=== PATIENT | female | born 1950 | race African-American/Black ===

== ENCOUNTER 2018-07-27 08:44 | Inpatient (IN) ==
[2018-07-27] MEDS ORDERED: SODIUM CHLORIDE 0.9% 1,000 ML IV STA (09:50)
[2018-07-27] MEDS ORDERED: THIAMINE 200 MG/2 ML VIAL IV STA (09:50)
[2018-07-27 10:19] LABS: Basophils # 0.1 10*3/uL (0.0-0.2); Basophils % 0.7 % (0.0-0.8); Eosinophils # 0.1 10*3/uL (0.0-0.87); Eosinophils % 1.8 % (0.00-10.9); Hematocrit 46.4 VOL% (35.7-47.0); Immature Granulocytes % 0.3 %; Immature Granulocytes Absolute 0.02 #; Lymphocytes # 3.8 10*3/uL (1.4-4.0); Lymphocytes % 53.5 % (21.3-54.2); Mean Corpuscular HGB Conc 34.5 GM/DL (32-36); Mean Corpuscular Hemoglobin 33 PG (27-34); Mean Corpuscular Volume 95.7 FL (87-102); Monocytes # 0.7 10*3/uL (0.11-0.8); Monocytes % 10.1 % (1.7-12.7); Neutrophils # 2.4 10*3/uL (1.4-7.4); Neutrophils % 33.6 % (38.7-73.9); Red Blood Count 4.85 MC/CUMM (3.8-5.5); Red Cell Distribution Width 19.1 % (9.3-17.3)
[2018-07-27 10:22] LABS: Platelet Count 92 T/CUMM (130-400)
[2018-07-27 10:28] LABS: INR 1.5; PT Patient Result 16.1 SECS
[2018-07-27 10:38] LABS: Albumin 1.4 G/DL (3.4-5.0); Bilirubin,Total 4.9 MG/DL (0.2-1.0); Calcium 8.5 MG/DL (8.5-10.1); Osmolality,Calculated 276.8 MOS/KG (273-304); Thyroid Stimulating Hormone 2.61 uIU/ml (0.358-3.74); Total Protein 8.7 G/DL (6.4-8.3)
[2018-07-27 10:40] LABS: Lactic Acid 2.2 MMOL/L (0.4-2.0)
[2018-07-27 11:11] LABS: Eosinophils 1 % (0-10); Hypochromasia 1+; Lymphocytes 51 % (20-55); Macrocytosis 1+; Nucleated Red Blood Cells 2 (0-5); Polychromasia Slight; Segmented Neutrophils 43 % (50-85); Target Cells Slight; Total Cells Counted 100
[2018-07-27 11:12] LABS: Platelet Estimate Decreased
[2018-07-27 11:56] LABS: Ammonia 107 UMOL/L (11-32)
[2018-07-27] MEDS ORDERED: ONDANSETRON 4 MG/2 ML VIAL IV PRN (12:44)
[2018-07-27] MEDS ORDERED: PROMETHAZINE 25 MG/1 ML VIAL IM PRN (12:44)
[2018-07-27] MEDS ORDERED: POTASSIUM CHLORIDE 20 MEQ TABLET PO PRN (12:48)
[2018-07-27] MEDS ORDERED: POTASSIUM CHLORIDE RIDER 10 MEQ in PREMIX 1 EACH IV PRN (12:48)
[2018-07-27] MEDS ORDERED: POTASSIUM CHLORIDE 20 MEQ TABLET PO STA (12:50)
[2018-07-27] MEDS ORDERED: DEXTROSE 50% 25 GM/50 ML SYRINGE IV PRN (14:59)
[2018-07-27] MEDS ORDERED: GLUCAGON 1 MG VIAL IM PRN (14:59)
[2018-07-27] MEDS: LACTULOSE 20 GM/30 ML UDCUP PO SCH ×3 (15:36→21:13)
[2018-07-27] MEDS: SODIUM CHLOR 0.9% KCL 20 MEQ 20 MEQ/1,000 ML BAG IV SCH (15:59)
[2018-07-27] MEDS ORDERED: POTASSIUM CHLORIDE 20 MEQ TABLET PO ONE (18:00)
[2018-07-27] MEDS: INSULIN LISPRO 100 UNIT/ML SUBCUT SCH ×2 (18:02→21:13)
[2018-07-27] MEDS: RIFAXIMIN 550 MG TABLET PO SCH (21:13)
[2018-07-27 22:48] LABS: Lactic Acid 2.2 MMOL/L (0.4-2.0)
[2018-07-28] MEDS: SODIUM CHLOR 0.9% KCL 20 MEQ 20 MEQ/1,000 ML BAG IV SCH ×2 (01:34→09:19)
[2018-07-28 04:58] LABS: Basophils % 0.5 % (0.0-0.8); Eosinophils # 0.2 10*3/uL (0.0-0.87); Eosinophils % 1.9 % (0.00-10.9); Hematocrit 38.2 VOL% (35.7-47.0); Hemoglobin 12.7 GM/DL (12.0-16.0); Immature Granulocytes % 0.2 %; Immature Granulocytes Absolute 0.02 #; Lymphocytes % 48.7 % (21.3-54.2); Mean Corpuscular HGB Conc 33.2 GM/DL (32-36); Mean Corpuscular Hemoglobin 32 PG (27-34); Mean Corpuscular Volume 97.2 FL (87-102); Monocytes # 0.9 10*3/uL (0.11-0.8); Monocytes % 10.9 % (1.7-12.7); Neutrophils # 3.1 10*3/uL (1.4-7.4); Neutrophils % 37.8 % (38.7-73.9); Platelet Count 81 T/CUMM (130-400); Red Blood Count 3.93 MC/CUMM (3.8-5.5); Red Cell Distribution Width 19.1 % (9.3-17.3); White Blood Count 8.2 T/CUMM (4-12)
[2018-07-28 05:18] LABS: Albumin 1.1 G/DL (3.4-5.0); Bilirubin,Total 5.4 MG/DL (0.2-1.0); Calcium 7.8 MG/DL (8.5-10.1); Osmolality,Calculated 281.4 MOS/KG (273-304); Potassium 4.2 MMOL/L (3.5-5.1); Risk Ratio 6.38; VLDL CHOLESTEROL 13.2 MG/DL
[2018-07-28 05:45] LABS: Eosinophils 3 % (0-10); Hypochromasia Slight; Lymphocytes 20 % (20-55); Platelet Estimate Decreased; Polychromasia Few; Segmented Neutrophils 70 % (50-85); Total Cells Counted 100
[2018-07-28] MEDS: INSULIN LISPRO 100 UNIT/ML SUBCUT SCH ×4 (08:09→22:05)
[2018-07-28] MEDS: RIFAXIMIN 550 MG TABLET PO SCH ×2 (09:09→21:19)
[2018-07-28] MEDS: POTASSIUM CHLORIDE 10 MEQ TABLET PO SCH (09:11)
[2018-07-28] MEDS: PANTOPRAZOLE 40 MG TABLET PO SCH (09:12)
[2018-07-28] MEDS: PROPRANOLOL 20 MG TABLET PO SCH (09:13)
[2018-07-28] MEDS: FUROSEMIDE 40 MG TABLET PO SCH (09:13)
[2018-07-28] MEDS: CHLORTHALIDONE 25 MG TABLET PO SCH (09:14)
[2018-07-28] MEDS: LACTULOSE 20 GM/30 ML UDCUP PO SCH ×4 (09:15→21:18)
[2018-07-28] MEDS ORDERED: INSULIN GLARGINE 100 UNIT/ML SUBCUT SCH ×2 (21:00)
[2018-07-29] MEDS: SODIUM CHLOR 0.9% KCL 20 MEQ 20 MEQ/1,000 ML BAG IV SCH ×2 (02:55→06:47)
[2018-07-29 05:17] LABS: Basophils # 0.1 10*3/uL (0.0-0.2); Basophils % 0.6 % (0.0-0.8); Eosinophils # 0.2 10*3/uL (0.0-0.87); Eosinophils % 1.9 % (0.00-10.9); Hematocrit 37.3 VOL% (35.7-47.0); Hemoglobin 12.7 GM/DL (12.0-16.0); Immature Granulocytes % 0.3 %; Immature Granulocytes Absolute 0.03 #; Lymphocytes # 4.6 10*3/uL (1.4-4.0); Lymphocytes % 51.6 % (21.3-54.2); Mean Corpuscular Hemoglobin 33 PG (27-34); Mean Corpuscular Volume 97.4 FL (87-102); Monocytes # 0.9 10*3/uL (0.11-0.8); Monocytes % 9.9 % (1.7-12.7); Neutrophils # 3.1 10*3/uL (1.4-7.4); Neutrophils % 35.7 % (38.7-73.9); Platelet Count 75 T/CUMM (130-400); Red Blood Count 3.83 MC/CUMM (3.8-5.5); Red Cell Distribution Width 19.4 % (9.3-17.3); White Blood Count 8.8 T/CUMM (4-12)
[2018-07-29 05:42] LABS: Bilirubin,Total 4.8 MG/DL (0.2-1.0); Calcium 7.7 MG/DL (8.5-10.1); Osmolality,Calculated 282.1 MOS/KG (273-304); Potassium 3.5 MMOL/L (3.5-5.1); Total Protein 6.6 G/DL (6.4-8.3)
[2018-07-29] MEDS: LEVOTHYROXINE 50 MCG TABLET PO SCH (07:59)
[2018-07-29 08:13] LABS: Band Neutrophils 5 % (0-10); Eosinophils 3 % (0-10); Lymphocytes 37 % (20-55); Platelet Estimate Decreased; Segmented Neutrophils 46 % (50-85); Smudge Cells 1+; Total Cells Counted 100
[2018-07-29 08:14] LABS: Anisocytosis 2+; Hypochromasia Slight; Macrocytosis 1+; Target Cells Few
[2018-07-29] MEDS: PROPRANOLOL 20 MG TABLET PO SCH (11:45)
[2018-07-29] MEDS: POTASSIUM CHLORIDE 10 MEQ TABLET PO SCH (11:45)
[2018-07-29] MEDS: PANTOPRAZOLE 40 MG TABLET PO SCH (11:45)
[2018-07-29] MEDS: FUROSEMIDE 40 MG TABLET PO SCH (11:45)
[2018-07-29] MEDS: CHLORTHALIDONE 25 MG TABLET PO SCH (11:45)
[2018-07-29] MEDS: RIFAXIMIN 550 MG TABLET PO SCH ×2 (11:45→20:20)
[2018-07-29] MEDS: LACTULOSE 20 GM/30 ML UDCUP PO SCH ×5 (11:47→20:29)
[2018-07-29] MEDS: INSULIN LISPRO 100 UNIT/ML SUBCUT SCH ×4 (11:55→22:19)
[2018-07-29] MEDS: INSULIN GLARGINE 100 UNIT/ML SUBCUT SCH (20:32)
[2018-07-30] MEDS: LACTULOSE 20 GM/30 ML UDCUP PO SCH ×7 (00:27→20:32)
[2018-07-30 05:13] LABS: Albumin 1.2 G/DL (3.4-5.0); Bilirubin,Total 4.7 MG/DL (0.2-1.0); Calcium 8.2 MG/DL (8.5-10.1); Osmolality,Calculated 281.3 MOS/KG (273-304); Total Protein 7.7 G/DL (6.4-8.3)
[2018-07-30 05:18] LABS: Basophils % 0.4 % (0.0-0.8); Eosinophils # 0.2 10*3/uL (0.0-0.87); Eosinophils % 2.2 % (0.00-10.9); Hematocrit 39.5 VOL% (35.7-47.0); Hemoglobin 13.5 GM/DL (12.0-16.0); Immature Granulocytes % 0.7 %; Lymphocytes # 4.4 10*3/uL (1.4-4.0); Lymphocytes % 47.6 % (21.3-54.2); Mean Corpuscular HGB Conc 34.2 GM/DL (32-36); Mean Corpuscular Hemoglobin 33 PG (27-34); Mean Corpuscular Volume 97.3 FL (87-102); Monocytes # 1.1 10*3/uL (0.11-0.8); Monocytes % 11.5 % (1.7-12.7); Neutrophils # 3.5 10*3/uL (1.4-7.4); Neutrophils % 37.6 % (38.7-73.9); Red Blood Count 4.06 MC/CUMM (3.8-5.5); Red Cell Distribution Width 19.1 % (9.3-17.3); White Blood Count 9.2 T/CUMM (4-12)
[2018-07-30 05:19] LABS: Immature Granulocytes Absolute 0.06 #
[2018-07-30 05:20] LABS: Platelet Count 81 T/CUMM (130-400)
[2018-07-30 05:35] LABS: Osmolality,Calculated 280.4 MOS/KG (273-304); Potassium 3.1 MMOL/L (3.5-5.1)
[2018-07-30 05:49] LABS: Band Neutrophils 1 % (0-10); Eosinophils 5 % (0-10); Hypochromasia 1+; Lymphocytes 30 % (20-55); Platelet Estimate Decreased; Segmented Neutrophils 55 % (50-85); Total Cells Counted 100
[2018-07-30 05:50] LABS: Macrocytosis Slight; Target Cells Few
[2018-07-30] MEDS: LEVOTHYROXINE 50 MCG TABLET PO SCH ×2 (05:53→06:06)
[2018-07-30] MEDS ORDERED: POTASSIUM CHLORIDE 20 MEQ TABLET PO ONE (07:29)
[2018-07-30] MEDS: INSULIN LISPRO 100 UNIT/ML SUBCUT SCH ×4 (10:48→20:34)
[2018-07-30] MEDS: FUROSEMIDE 40 MG TABLET PO SCH (10:53)
[2018-07-30] MEDS: PANTOPRAZOLE 40 MG TABLET PO SCH (10:54)
[2018-07-30] MEDS: PROPRANOLOL 20 MG TABLET PO SCH (10:54)
[2018-07-30] MEDS: CHLORTHALIDONE 25 MG TABLET PO SCH (10:54)
[2018-07-30] MEDS: RIFAXIMIN 550 MG TABLET PO SCH ×2 (10:54→20:33)
[2018-07-30] MEDS: POTASSIUM CHLORIDE 20 MEQ TABLET PO SCH ×2 (11:37→20:33)
[2018-07-30] MEDS: POTASSIUM CHLORIDE 10 MEQ TABLET PO SCH (11:37)
[2018-07-30] MEDS: INSULIN GLARGINE 100 UNIT/ML SUBCUT SCH (20:33)
[2018-07-31] MEDS: LACTULOSE 20 GM/30 ML UDCUP PO SCH ×3 (01:13→11:27)
[2018-07-31 05:35] LABS: Basophils % 0.4 % (0.0-0.8); Eosinophils # 0.1 10*3/uL (0.0-0.87); Eosinophils % 1.8 % (0.00-10.9); Hemoglobin 14.5 GM/DL (12.0-16.0); Immature Granulocytes % 0.4 %; Immature Granulocytes Absolute 0.03 #; Lymphocytes # 3.3 10*3/uL (1.4-4.0); Lymphocytes % 45.5 % (21.3-54.2); Mean Corpuscular HGB Conc 33.7 GM/DL (32-36); Mean Corpuscular Hemoglobin 33 PG (27-34); Mean Corpuscular Volume 98.6 FL (87-102); Monocytes # 0.7 10*3/uL (0.11-0.8); Monocytes % 9.5 % (1.7-12.7); Neutrophils % 42.4 % (38.7-73.9); Red Blood Count 4.36 MC/CUMM (3.8-5.5); Red Cell Distribution Width 19.1 % (9.3-17.3); White Blood Count 7.2 T/CUMM (4-12)
[2018-07-31 05:37] LABS: Platelet Count 91 T/CUMM (130-400)
[2018-07-31 05:57] LABS: Albumin 1.2 G/DL (3.4-5.0); Bilirubin,Total 5.1 MG/DL (0.2-1.0); Calcium 8.7 MG/DL (8.5-10.1); Osmolality,Calculated 279.4 MOS/KG (273-304); Platelet Estimate Decreased; Potassium 3.7 MMOL/L (3.5-5.1); Total Protein 8.3 G/DL (6.4-8.3)
[2018-07-31 06:00] LABS: Anisocytosis 1+; Polychromasia Slight; Target Cells Few
[2018-07-31 06:01] LABS: Macrocytosis Slight
[2018-07-31] MEDS: LEVOTHYROXINE 50 MCG TABLET PO SCH (06:39)
[2018-07-31] MEDS: INSULIN LISPRO 100 UNIT/ML SUBCUT SCH ×4 (11:26→20:46)
[2018-07-31] MEDS: FUROSEMIDE 40 MG TABLET PO SCH (11:27)
[2018-07-31] MEDS: PANTOPRAZOLE 40 MG TABLET PO SCH (11:27)
[2018-07-31] MEDS: CHLORTHALIDONE 25 MG TABLET PO SCH (11:27)
[2018-07-31] MEDS: POTASSIUM CHLORIDE 20 MEQ TABLET PO SCH ×2 (11:27→20:49)
[2018-07-31] MEDS: POTASSIUM CHLORIDE 10 MEQ TABLET PO SCH (11:27)
[2018-07-31] MEDS: PROPRANOLOL 20 MG TABLET PO SCH (11:27)
[2018-07-31] MEDS: RIFAXIMIN 550 MG TABLET PO SCH ×2 (11:27→20:48)
[2018-07-31] MEDS ORDERED: LACTULOSE 320 GM/480 ML BOTTLE RECTAL SCH (13:00)
[2018-07-31] MEDS: LACTULOSE 320 GM/480 ML BOTTLE RECTAL SCH ×3 (17:36→23:35)
[2018-07-31] MEDS: PIPERACILLIN/TAZOBACTAM 3,375 MG in SODIUM CHLORIDE 0.9% 100 ML IV SCH ×2 (19:51→23:12)
[2018-08-01] MEDS: LACTULOSE 320 GM/480 ML BOTTLE RECTAL SCH ×5 (03:09→16:44)
[2018-08-01] MEDS ORDERED: SODIUM CHLORIDE 0.9% 250 ML IV ONE (04:43)
[2018-08-01 05:33] LABS: Basophils % 0.3 % (0.0-0.8); Eosinophils % 0.2 % (0.00-10.9); Hematocrit 37.8 VOL% (35.7-47.0); Hemoglobin 12.7 GM/DL (12.0-16.0); Immature Granulocytes % 0.5 %; Immature Granulocytes Absolute 0.07 #; Lymphocytes # 4.6 10*3/uL (1.4-4.0); Lymphocytes % 34.6 % (21.3-54.2); Mean Corpuscular HGB Conc 33.6 GM/DL (32-36); Mean Corpuscular Hemoglobin 34 PG (27-34); Mean Corpuscular Volume 99.7 FL (87-102); Mean Platelet Volume 12.2 FL (9.6-12.0); Monocytes % 7.8 % (1.7-12.7); Neutrophils # 7.5 10*3/uL (1.4-7.4); Neutrophils % 56.6 % (38.7-73.9); Platelet Count 84 T/CUMM (130-400); Red Blood Count 3.79 MC/CUMM (3.8-5.5); Red Cell Distribution Width 19.6 % (9.3-17.3); White Blood Count 13.3 T/CUMM (4-12)
[2018-08-01 06:02] LABS: Band Neutrophils 30 % (0-10); Lymphocytes 27 % (20-55); Segmented Neutrophils 37 % (50-85); Total Cells Counted 100
[2018-08-01 06:03] LABS: Anisocytosis 1+; Macrocytosis 1+; Platelet Estimate Decreased; Smudge Cells 1+; Target Cells 1+
[2018-08-01 06:04] LABS: Bilirubin,Total 5.1 MG/DL (0.2-1.0); Calcium 7.7 MG/DL (8.5-10.1); Osmolality,Calculated 291.8 MOS/KG (273-304); Potassium 3.7 MMOL/L (3.5-5.1); Total Protein 6.7 G/DL (6.4-8.3)
[2018-08-01] MEDS: LEVOTHYROXINE 50 MCG TABLET PO SCH (06:32)
[2018-08-01] MEDS: PIPERACILLIN/TAZOBACTAM 3,375 MG in SODIUM CHLORIDE 0.9% 100 ML IV SCH (06:43)
[2018-08-01] MEDS: INSULIN LISPRO 100 UNIT/ML SUBCUT SCH ×4 (08:05→20:55)
[2018-08-01] MEDS: PROPRANOLOL 20 MG TABLET PO SCH (09:41)
[2018-08-01] MEDS: PANTOPRAZOLE 40 MG TABLET PO SCH (09:41)
[2018-08-01] MEDS: POTASSIUM CHLORIDE 20 MEQ TABLET PO SCH ×2 (09:41→20:45)
[2018-08-01] MEDS: RIFAXIMIN 550 MG TABLET PO SCH ×2 (09:42→20:45)
[2018-08-01] MEDS: cefTRIAXone 2,000 MG in SYRINGE 1 EACH IV SCH (09:58)
[2018-08-01] MEDS: SODIUM CHLORIDE 0.9% 1,000 ML IV SCH ×2 (09:58→22:06)
[2018-08-01] MEDS: VANCOMYCIN INJ 1,000 MG in SODIUM CHLORIDE 0.9% 250 ML IV SCH (10:58)
[2018-08-01 15:01] LABS: Apearance,Urine Slightly Hazy (Clear); Bilirubin,Urine Small mg/dL (Negative); Blood, Urine Small mg/dL (Negative); Glucose,Urine (UA) Negative (Negative); Hyaline Casts,Urine 20 /LPF (0-3); Ketones,Urine Negative (Negative); Mucus,Urine Occasional /LPF (Occasional); Nitrite,Urine Negative (Negative); Protein,Urine Negative; RBC,Urine 4 /HPF (0-4); Squamous Epithelial Cell,Urine Occasional /HPF (0-10); Urine Color Amber (Yellow); Urine Specific Gravity 1.026 (1.001-1.035); Urine Urobilinogen < 2.0 EU/DL (0.2-1.0); WBC,Urine 24 /HPF (0-6)
[2018-08-01] MEDS: LACTULOSE 20 GM/30 ML UDCUP PO SCH ×4 (17:30→22:07)
[2018-08-02] MEDS: LACTULOSE 20 GM/30 ML UDCUP PO SCH ×6 (02:01→22:24)
[2018-08-02 05:20] LABS: Basophils % 0.4 % (0.0-0.8); Eosinophils # 0.2 10*3/uL (0.0-0.87); Eosinophils % 2.1 % (0.00-10.9); Hematocrit 37.1 VOL% (35.7-47.0); Hemoglobin 12.3 GM/DL (12.0-16.0); Immature Granulocytes % 0.6 %; Immature Granulocytes Absolute 0.06 #; Lymphocytes # 3.6 10*3/uL (1.4-4.0); Lymphocytes % 36.9 % (21.3-54.2); Mean Corpuscular HGB Conc 33.2 GM/DL (32-36); Mean Corpuscular Hemoglobin 33 PG (27-34); Mean Corpuscular Volume 100.3 FL (87-102); Monocytes % 9.8 % (1.7-12.7); Neutrophils # 4.9 10*3/uL (1.4-7.4); Neutrophils % 50.2 % (38.7-73.9); Platelet Count 80 T/CUMM (130-400); Red Cell Distribution Width 19.2 % (9.3-17.3); White Blood Count 9.8 T/CUMM (4-12)
[2018-08-02 05:28] LABS: INR 1.5; PT Patient Result 16.2 SECS
[2018-08-02 05:52] LABS: Platelet Estimate Decreased; Polychromasia Few
[2018-08-02 05:59] LABS: Bilirubin,Total 3.9 MG/DL (0.2-1.0); Calcium 7.7 MG/DL (8.5-10.1); Osmolality,Calculated 304.3 MOS/KG (273-304); Potassium 3.2 MMOL/L (3.5-5.1); Total Protein 6.6 G/DL (6.4-8.3)
[2018-08-02] MEDS: LEVOTHYROXINE 50 MCG TABLET PO SCH (06:03)
[2018-08-02] MEDS: INSULIN LISPRO 100 UNIT/ML SUBCUT SCH ×4 (09:47→21:58)
[2018-08-02] MEDS: PROPRANOLOL 20 MG TABLET PO SCH (09:54)
[2018-08-02] MEDS: PANTOPRAZOLE 40 MG TABLET PO SCH (09:55)
[2018-08-02] MEDS: RIFAXIMIN 550 MG TABLET PO SCH ×2 (09:55→20:52)
[2018-08-02] MEDS: POTASSIUM CHLORIDE 20 MEQ TABLET PO SCH ×2 (09:55→20:52)
[2018-08-02] MEDS: SODIUM CHLOR 0.45% KCL 20 MEQ 20 MEQ/1,000 ML BAG IV SCH ×2 (09:56→23:42)
[2018-08-02] MEDS: cefTRIAXone 2,000 MG in SYRINGE 1 EACH IV SCH (09:56)
[2018-08-02] MEDS: SODIUM CHLORIDE 0.9% 1,000 ML IV SCH (12:28)
[2018-08-02] MEDS ORDERED: ACETAMINOPHEN 325 MG TABLET PO PRN (15:47)
[2018-08-03] MEDS: LACTULOSE 20 GM/30 ML UDCUP PO SCH ×6 (02:13→22:43)
[2018-08-03 06:15] LABS: Basophils % 0.4 % (0.0-0.8); Eosinophils # 0.2 10*3/uL (0.0-0.87); Eosinophils % 2.2 % (0.00-10.9); Hematocrit 36.6 VOL% (35.7-47.0); Hemoglobin 11.8 GM/DL (12.0-16.0); Immature Granulocytes % 1.3 %; Immature Granulocytes Absolute 0.11 #; Lymphocytes % 36.5 % (21.3-54.2); Mean Corpuscular HGB Conc 32.2 GM/DL (32-36); Mean Corpuscular Hemoglobin 33 PG (27-34); Mean Corpuscular Volume 103.4 FL (87-102); Mean Platelet Volume 12.1 FL (9.6-12.0); Monocytes # 0.9 10*3/uL (0.11-0.8); Monocytes % 10.8 % (1.7-12.7); NRBC # 0.02 10*3/uL; Neutrophils % 48.8 % (38.7-73.9); Platelet Count 72 T/CUMM (130-400); Red Blood Count 3.54 MC/CUMM (3.8-5.5); Red Cell Distribution Width 19.6 % (9.3-17.3); White Blood Count 8.2 T/CUMM (4-12)
[2018-08-03 06:45] LABS: Albumin 0.9 G/DL (3.4-5.0); Bilirubin,Direct 2.11 MG/DL (0.0-0.20); Bilirubin,Indirect 1.1 MG/DL (0.0-1.0); Bilirubin,Total 3.2 MG/DL (0.2-1.0); Calcium 7.5 MG/DL (8.5-10.1); Osmolality,Calculated 296.6 MOS/KG (273-304); Potassium 4.9 MMOL/L (3.5-5.1); Total Protein 6.7 G/DL (6.4-8.3)
[2018-08-03 08:46] LABS: Eosinophils 2 % (0-10); Lymphocytes 22 % (20-55); Polychromasia Slight; Segmented Neutrophils 73 % (50-85); Total Cells Counted 100
[2018-08-03 08:47] LABS: Platelet Estimate Decreased
[2018-08-03] MEDS: RIFAXIMIN 550 MG TABLET PO SCH ×2 (09:14→20:46)
[2018-08-03] MEDS: PROPRANOLOL 20 MG TABLET PO SCH (09:14)
[2018-08-03] MEDS: PANTOPRAZOLE 40 MG TABLET PO SCH (09:14)
[2018-08-03] MEDS: LEVOTHYROXINE 50 MCG TABLET PO SCH (09:14)
[2018-08-03] MEDS: POTASSIUM CHLORIDE 20 MEQ TABLET PO SCH ×2 (09:14→20:46)
[2018-08-03] MEDS: cefTRIAXone 2,000 MG in SYRINGE 1 EACH IV SCH (09:22)
[2018-08-03] MEDS: INSULIN LISPRO 100 UNIT/ML SUBCUT SCH ×3 (09:34→16:35)
[2018-08-03] MEDS: VANCOMYCIN INJ 1,000 MG in SODIUM CHLORIDE 0.9% 250 ML IV SCH (10:19)
[2018-08-03] MEDS: SODIUM CHLORIDE 0.45% 1,000 ML IV SCH (10:19)
[2018-08-04] MEDS: INSULIN LISPRO 100 UNIT/ML SUBCUT SCH ×4 (00:14→19:24)
[2018-08-04] MEDS: SODIUM CHLORIDE 0.45% 1,000 ML IV SCH (01:01)
[2018-08-04] MEDS: LACTULOSE 20 GM/30 ML UDCUP PO SCH ×6 (02:03→21:06)
[2018-08-04 06:53] LABS: Osmolality,Calculated 259.8 MOS/KG (273-304); Potassium 3.2 MMOL/L (3.5-5.1)
[2018-08-04 07:03] LABS: Basophils % 0.3 % (0.0-0.8); Calcium 5.6 MG/DL (8.5-10.1); Eosinophils # 0.2 10*3/uL (0.0-0.87); Hematocrit 33.5 VOL% (35.7-47.0); Hemoglobin 10.3 GM/DL (12.0-16.0); Immature Granulocytes % 0.9 %; Immature Granulocytes Absolute 0.06 #; Lymphocytes # 2.7 10*3/uL (1.4-4.0); Mean Corpuscular HGB Conc 30.7 GM/DL (32-36); Mean Corpuscular Hemoglobin 33 PG (27-34); Mean Corpuscular Volume 108.8 FL (87-102); Monocytes # 0.7 10*3/uL (0.11-0.8); Monocytes % 10.3 % (1.7-12.7); NRBC # 0.02 10*3/uL; Neutrophils # 2.8 10*3/uL (1.4-7.4); Neutrophils % 43.5 % (38.7-73.9); Platelet Count 52 T/CUMM (130-400); Red Blood Count 3.08 MC/CUMM (3.8-5.5); Red Cell Distribution Width 19.2 % (9.3-17.3); White Blood Count 6.3 T/CUMM (4-12)
[2018-08-04 07:28] LABS: Hypochromasia 1+; Platelet Estimate Decreased
[2018-08-04] MEDS ORDERED: ALBUMIN 25% 25 GM in PREMIX 1 EACH IV ONE (07:42)
[2018-08-04] MEDS ORDERED: MAGNESIUM SULF RIDER 2 GM in PREMIX 1 EACH IV ONE (07:44)
[2018-08-04] MEDS ORDERED: POTASSIUM CHLORIDE 20 MEQ TABLET PO SCH (08:00)
[2018-08-04] MEDS ORDERED: SODIUM BICARB INJ 100 MEQ in DEXTROSE 5% NACL 0.45% 1,000 ML IV SCH (08:00)
[2018-08-04 10:03] LABS: Calcium 7.8 MG/DL (8.5-10.1); Osmolality,Calculated 285.1 MOS/KG (273-304); Potassium 4.7 MMOL/L (3.5-5.1)
[2018-08-04] MEDS: LEVOTHYROXINE 50 MCG TABLET PO SCH (10:23)
[2018-08-04] MEDS: PROPRANOLOL 20 MG TABLET PO SCH (10:24)
[2018-08-04] MEDS: PANTOPRAZOLE 40 MG TABLET PO SCH (10:24)
[2018-08-04] MEDS ORDERED: POTASSIUM PHOSPHATE 30 MMOL in SODIUM CHLORIDE 0.9% 250 ML IV ONE (11:00)
[2018-08-04] MEDS: POTASSIUM CHLORIDE 20 MEQ TABLET PO SCH ×2 (13:14→21:05)
[2018-08-04] MEDS: cefTRIAXone 2,000 MG in SYRINGE 1 EACH IV SCH (15:29)
[2018-08-04] MEDS: RIFAXIMIN 550 MG TABLET PO SCH ×2 (15:32→21:05)
[2018-08-04] MEDS: VANCOMYCIN INJ 1,000 MG in SODIUM CHLORIDE 0.9% 250 ML IV SCH (15:37)
[2018-08-05] MEDS: INSULIN LISPRO 100 UNIT/ML SUBCUT SCH ×5 (00:25→21:11)
[2018-08-05] MEDS: VANCOMYCIN INJ 1,000 MG in SODIUM CHLORIDE 0.9% 250 ML IV SCH ×2 (02:00→09:22)
[2018-08-05] MEDS: LACTULOSE 20 GM/30 ML UDCUP PO SCH ×6 (05:07→21:06)
[2018-08-05 05:09] LABS: Basophils % 0.5 % (0.0-0.8); Eosinophils # 0.2 10*3/uL (0.0-0.87); Hematocrit 36.6 VOL% (35.7-47.0); Immature Granulocytes % 0.9 %; Immature Granulocytes Absolute 0.07 #; Lymphocytes # 2.5 10*3/uL (1.4-4.0); Lymphocytes % 32.7 % (21.3-54.2); Mean Corpuscular HGB Conc 32.8 GM/DL (32-36); Mean Corpuscular Hemoglobin 33 PG (27-34); Mean Corpuscular Volume 101.7 FL (87-102); Mean Platelet Volume 12.9 FL (9.6-12.0); Monocytes # 0.7 10*3/uL (0.11-0.8); Monocytes % 9.2 % (1.7-12.7); Neutrophils # 4.2 10*3/uL (1.4-7.4); Neutrophils % 53.7 % (38.7-73.9); Platelet Count 70 T/CUMM (130-400); Red Cell Distribution Width 18.7 % (9.3-17.3); White Blood Count 7.7 T/CUMM (4-12)
[2018-08-05 05:21] LABS: Calcium 8.1 MG/DL (8.5-10.1); Osmolality,Calculated 290.8 MOS/KG (273-304); Potassium 4.8 MMOL/L (3.5-5.1)
[2018-08-05 05:53] LABS: Hypochromasia Slight; Platelet Estimate Decreased; Target Cells Few
[2018-08-05] MEDS: LEVOTHYROXINE 50 MCG TABLET PO SCH (06:19)
[2018-08-05] MEDS: POTASSIUM CHLORIDE 20 MEQ TABLET PO SCH ×2 (09:11→21:06)
[2018-08-05] MEDS: PANTOPRAZOLE 40 MG TABLET PO SCH (09:11)
[2018-08-05] MEDS: PROPRANOLOL 20 MG TABLET PO SCH (09:11)
[2018-08-05] MEDS: RIFAXIMIN 550 MG TABLET PO SCH ×2 (09:11→21:06)
[2018-08-05] MEDS: cefTRIAXone 2,000 MG in SYRINGE 1 EACH IV SCH (09:12)
[2018-08-05] MEDS ORDERED: TUBERCULIN SKIN TEST 0.1 ML SYRINGE INTRADERM ONE (14:03)
[2018-08-06] MEDS: LACTULOSE 20 GM/30 ML UDCUP PO SCH ×3 (03:34→12:45)
[2018-08-06 04:48] LABS: Basophils % 0.4 % (0.0-0.8); Eosinophils # 0.3 10*3/uL (0.0-0.87); Eosinophils % 3.4 % (0.00-10.9); Hematocrit 37.4 VOL% (35.7-47.0); Hemoglobin 12.2 GM/DL (12.0-16.0); Immature Granulocytes % 1.1 %; Immature Granulocytes Absolute 0.09 #; Lymphocytes # 3.5 10*3/uL (1.4-4.0); Lymphocytes % 41.7 % (21.3-54.2); Mean Corpuscular HGB Conc 32.6 GM/DL (32-36); Mean Corpuscular Hemoglobin 33 PG (27-34); Mean Corpuscular Volume 101.9 FL (87-102); Mean Platelet Volume 12.9 FL (9.6-12.0); Monocytes # 0.8 10*3/uL (0.11-0.8); Monocytes % 9.5 % (1.7-12.7); NRBC # 0.03 10*3/uL; Neutrophils # 3.6 10*3/uL (1.4-7.4); Neutrophils % 43.9 % (38.7-73.9); Red Blood Count 3.67 MC/CUMM (3.8-5.5); Red Cell Distribution Width 18.6 % (9.3-17.3); White Blood Count 8.3 T/CUMM (4-12)
[2018-08-06 04:50] LABS: Platelet Count 63 T/CUMM (130-400)
[2018-08-06 05:10] LABS: Calcium 8.1 MG/DL (8.5-10.1); Potassium 4.5 MMOL/L (3.5-5.1)
[2018-08-06 05:47] LABS: Eosinophils 6 % (0-10); Hypochromasia 1+; Lymphocytes 26 % (20-55); Platelet Estimate Decreased; Segmented Neutrophils 59 % (50-85); Total Cells Counted 100
[2018-08-06] MEDS: LEVOTHYROXINE 50 MCG TABLET PO SCH (06:18)
[2018-08-06] MEDS: PROPRANOLOL 20 MG TABLET PO SCH (08:20)
[2018-08-06] MEDS: RIFAXIMIN 550 MG TABLET PO SCH (08:20)
[2018-08-06] MEDS: PANTOPRAZOLE 40 MG TABLET PO SCH (08:20)
[2018-08-06] MEDS: INSULIN LISPRO 100 UNIT/ML SUBCUT SCH ×2 (08:20→12:45)
[2018-08-06] MEDS: POTASSIUM CHLORIDE 20 MEQ TABLET PO SCH (08:20)
[2018-08-06] MEDS: cefTRIAXone 2,000 MG in SYRINGE 1 EACH IV SCH (08:21)
[2018-08-06 12:10] VITALS: BP 148/70
== END 2018-08-06 14:13 | DRG 442 ==
LOC: N.EDINP 08:44 → N.ED 08:44 → SUATTDRO 12:44 → N.4E 14:03
PROVIDERS: ADMIT Internal Medicine Geriatric Medicine; ATTEND Internal Medicine

== ENCOUNTER 2018-09-11 12:55 | Inpatient (IN) ==
[2018-09-11 14:25] LABS: Apearance,Urine CLEAR (Clear); Bilirubin,Urine Negative (Negative); Blood, Urine Negative (Negative); Glucose,Urine (UA) Negative (Negative); Ketones,Urine Negative (Negative); Nitrite,Urine Negative (Negative); Protein,Urine Negative; RBC,Urine 2 /HPF (0-4); Urine Color Yellow (Yellow); Urine Specific Gravity 1.005 (1.001-1.035); Urine Urobilinogen < 2.0 EU/DL (0.2-1.0); WBC,Urine <1 /HPF (0-6)
[2018-09-11 14:25] LABS: Basophils # 0.1 10*3/uL (0.0-0.2); Basophils % 0.9 % (0.0-0.8); Eosinophils # 0.2 10*3/uL (0.0-0.87); Eosinophils % 3.2 % (0.00-10.9); Hemoglobin 13.8 GM/DL (12.0-16.0); Immature Granulocytes % 0.3 %; Immature Granulocytes Absolute 0.02 #; Lymphocytes # 3.6 10*3/uL (1.4-4.0); Lymphocytes % 54.6 % (21.3-54.2); Mean Corpuscular HGB Conc 34.5 GM/DL (32-36); Mean Corpuscular Hemoglobin 34 PG (27-34); Mean Corpuscular Volume 97.3 FL (87-102); Monocytes # 0.7 10*3/uL (0.11-0.8); Monocytes % 10.8 % (1.7-12.7); Neutrophils % 30.2 % (38.7-73.9); Platelet Count 100 T/CUMM (130-400); Red Blood Count 4.11 MC/CUMM (3.8-5.5); Red Cell Distribution Width 20.4 % (9.3-17.3); White Blood Count 6.6 T/CUMM (4-12)
[2018-09-11 14:36] LABS: INR 1.5; PT Patient Result 16.2 SECS; Partial Thromboplastin Time 39.9 SECS (0-40)
[2018-09-11 14:37] LABS: Albumin 1.5 G/DL (3.4-5.0); Bilirubin,Total 6.1 MG/DL (0.2-1.0); Calcium 8.8 MG/DL (8.5-10.1); Osmolality,Calculated 275.8 MOS/KG (273-304); Total Protein 8.5 G/DL (6.4-8.3)
[2018-09-11 14:42] LABS: Potassium 2.5 MMOL/L (3.5-5.1)
[2018-09-11 15:12] LABS: Eosinophils 1 % (0-10); Lymphocytes 42 % (20-55); Segmented Neutrophils 46 % (50-85); Total Cells Counted 100
[2018-09-11 15:13] LABS: Macrocytosis Slight; Platelet Estimate Adequate
[2018-09-11] MEDS ORDERED: ONDANSETRON 4 MG/2 ML VIAL IV PRN (17:23)
[2018-09-11] MEDS ORDERED: ACETAMINOPHEN 325 MG TABLET PO PRN (17:23)
[2018-09-11] MEDS ORDERED: POTASSIUM CHLORIDE 20 MEQ/15 ML UDCUP PER TUBE PRN (17:26)
[2018-09-11] MEDS ORDERED: SODIUM CHLORIDE 0.9% 1,000 ML IV SCH (18:00)
[2018-09-11] MEDS: LACTULOSE 20 GM/30 ML UDCUP PO SCH (19:02)
[2018-09-11] MEDS: SODIUM CHLORIDE 0.9% 500 ML IV SCH (19:42)
[2018-09-11] MEDS: NYSTATIN POWDER 15 GM BOTTLE TOP SCH (20:43)
[2018-09-11] MEDS: POTASSIUM CHLORIDE RIDER 10 MEQ in PREMIX 1 EACH IV PRN ×2 (20:43→23:54)
[2018-09-11] MEDS: ZINC OXIDE PASTE 113 GM TUBE TOP SCH (20:43)
[2018-09-11] MEDS ORDERED: LACTULOSE 20 GM/30 ML UDCUP PO SCH (21:00)
[2018-09-12 01:00] LABS: Basophils # 0.1 10*3/uL (0.0-0.2); Eosinophils # 0.2 10*3/uL (0.0-0.87); Hemoglobin 12.1 GM/DL (12.0-16.0); Immature Granulocytes % 0.1 %; Immature Granulocytes Absolute 0.01 #; Lymphocytes # 3.9 10*3/uL (1.4-4.0); Lymphocytes % 53.4 % (21.3-54.2); Mean Corpuscular HGB Conc 33.6 GM/DL (32-36); Mean Corpuscular Hemoglobin 33 PG (27-34); Mean Corpuscular Volume 98.9 FL (87-102); Mean Platelet Volume 12.3 FL (9.6-12.0); Monocytes # 0.7 10*3/uL (0.11-0.8); Monocytes % 8.9 % (1.7-12.7); Neutrophils # 2.5 10*3/uL (1.4-7.4); Neutrophils % 33.6 % (38.7-73.9); Platelet Count 89 T/CUMM (130-400); Red Blood Count 3.64 MC/CUMM (3.8-5.5); Red Cell Distribution Width 20.2 % (9.3-17.3); White Blood Count 7.3 T/CUMM (4-12)
[2018-09-12] MEDS: SODIUM CHLORIDE 0.9% 500 ML IV SCH ×3 (01:09→16:12)
[2018-09-12 01:14] LABS: Albumin 1.3 G/DL (3.4-5.0); Bilirubin,Direct 3.45 MG/DL (0.0-0.20); Bilirubin,Indirect 2.4 MG/DL (0.0-1.0); Bilirubin,Total 5.8 MG/DL (0.2-1.0); Total Protein 7.1 G/DL (6.4-8.3)
[2018-09-12 01:19] LABS: Calcium 8.3 MG/DL (8.5-10.1); Osmolality,Calculated 278.5 MOS/KG (273-304); Potassium 2.7 MMOL/L (3.5-5.1); Risk Ratio 5.11; Thyroid Stimulating Hormone 6.91 uIU/ml (0.358-3.74); VLDL CHOLESTEROL 15.6 MG/DL
[2018-09-12] MEDS: POTASSIUM CHLORIDE RIDER 10 MEQ in PREMIX 1 EACH IV PRN ×7 (01:45→16:13)
[2018-09-12] MEDS: LACTULOSE 20 GM/30 ML UDCUP PO SCH ×4 (02:29→18:33)
[2018-09-12 03:08] LABS: Band Neutrophils 4 % (0-10); Eosinophils 6 % (0-10); Lymphocytes 54 % (20-55); Platelet Estimate Decreased; Segmented Neutrophils 24 % (50-85); Target Cells 2+; Total Cells Counted 100
[2018-09-12 03:09] LABS: Atypical Lymphocytes Few; Hypochromasia 1+
[2018-09-12] MEDS: LEVOTHYROXINE 50 MCG TABLET PO SCH (06:20)
[2018-09-12] MEDS ORDERED: MAGNESIUM SULF RIDER 4 GM in PREMIX 1 EACH IV PRN (07:12)
[2018-09-12] MEDS ORDERED: MAGNESIUM SULF RIDER 2 GM in PREMIX 1 EACH IV PRN (07:12)
[2018-09-12] MEDS: PANTOPRAZOLE 40 MG TABLET PO SCH (08:59)
[2018-09-12] MEDS: ZINC OXIDE PASTE 113 GM TUBE TOP SCH ×2 (08:59→21:00)
[2018-09-12] MEDS: NYSTATIN POWDER 15 GM BOTTLE TOP SCH ×2 (08:59→21:00)
[2018-09-12] MEDS: CHLORTHALIDONE 25 MG TABLET PO SCH (08:59)
[2018-09-12] MEDS ORDERED: FUROSEMIDE 40 MG TABLET PO SCH (09:00)
[2018-09-13] MEDS: LACTULOSE 20 GM/30 ML UDCUP PO SCH ×5 (01:42→23:50)
[2018-09-13 04:51] LABS: Basophils # 0.1 10*3/uL (0.0-0.2); Basophils % 0.9 % (0.0-0.8); Eosinophils # 0.2 10*3/uL (0.0-0.87); Eosinophils % 2.4 % (0.00-10.9); Hematocrit 37.5 VOL% (35.7-47.0); Hemoglobin 12.6 GM/DL (12.0-16.0); Immature Granulocytes % 0.3 %; Immature Granulocytes Absolute 0.02 #; Lymphocytes # 4.2 10*3/uL (1.4-4.0); Lymphocytes % 54.9 % (21.3-54.2); Mean Corpuscular HGB Conc 33.6 GM/DL (32-36); Mean Corpuscular Hemoglobin 33 PG (27-34); Mean Corpuscular Volume 98.7 FL (87-102); Mean Platelet Volume 12.8 FL (9.6-12.0); Monocytes # 0.6 10*3/uL (0.11-0.8); Monocytes % 7.4 % (1.7-12.7); Neutrophils # 2.6 10*3/uL (1.4-7.4); Neutrophils % 34.1 % (38.7-73.9); Platelet Count 73 T/CUMM (130-400); Red Cell Distribution Width 20.6 % (9.3-17.3); White Blood Count 7.6 T/CUMM (4-12)
[2018-09-13 05:01] LABS: Calcium 8.2 MG/DL (8.5-10.1); Osmolality,Calculated 271.1 MOS/KG (273-304); Potassium 3.6 MMOL/L (3.5-5.1)
[2018-09-13 05:23] LABS: Anisocytosis 1+; Atypical Lymphocytes Few; Eosinophils 4 % (0-10); Lymphocytes 50 % (20-55); Macrocytosis 1+; Platelet Estimate Decreased; Reactive Lymphocytes Few; Segmented Neutrophils 39 % (50-85); Total Cells Counted 100
[2018-09-13 05:32] LABS: Albumin 0.9 G/DL (3.4-5.0); Bilirubin,Direct 2.6 MG/DL (0.0-0.20); Bilirubin,Indirect 2.6 MG/DL (0.0-1.0); Bilirubin,Total 5.2 MG/DL (0.2-1.0); Total Protein 6.8 G/DL (6.4-8.3)
[2018-09-13] MEDS: POTASSIUM CHLORIDE RIDER 10 MEQ in PREMIX 1 EACH IV PRN ×2 (06:30→08:34)
[2018-09-13] MEDS: LEVOTHYROXINE 50 MCG TABLET PO SCH (06:47)
[2018-09-13] MEDS: NYSTATIN POWDER 15 GM BOTTLE TOP SCH ×2 (08:35→22:11)
[2018-09-13] MEDS: CHLORTHALIDONE 25 MG TABLET PO SCH (08:35)
[2018-09-13] MEDS: PANTOPRAZOLE 40 MG TABLET PO SCH (08:35)
[2018-09-13] MEDS: ZINC OXIDE PASTE 113 GM TUBE TOP SCH ×2 (08:35→22:11)
[2018-09-13] MEDS ORDERED: CALCIUM GLUCONATE 2,000 MG in SODIUM CHLORIDE 0.9% 100 ML IV ONE (12:30)
[2018-09-13] MEDS: DEXTROSE 5% NACL 0.45% 1,000 ML IV SCH (13:20)
[2018-09-13] MEDS: CALCIUM CARBONATE CHEW 500 MG TABLET PO SCH ×2 (13:20→21:30)
[2018-09-14] MEDS: DEXTROSE 5% NACL 0.45% 1,000 ML IV SCH (02:32)
[2018-09-14 04:53] LABS: Basophils # 0.1 10*3/uL (0.0-0.2); Basophils % 0.8 % (0.0-0.8); Eosinophils # 0.2 10*3/uL (0.0-0.87); Eosinophils % 3.1 % (0.00-10.9); Hematocrit 33.2 VOL% (35.7-47.0); Hemoglobin 11.1 GM/DL (12.0-16.0); Immature Granulocytes % 0.3 %; Immature Granulocytes Absolute 0.02 #; Lymphocytes # 3.7 10*3/uL (1.4-4.0); Lymphocytes % 52.8 % (21.3-54.2); Mean Corpuscular HGB Conc 33.4 GM/DL (32-36); Mean Corpuscular Hemoglobin 33 PG (27-34); Mean Corpuscular Volume 99.1 FL (87-102); Monocytes # 0.6 10*3/uL (0.11-0.8); Monocytes % 8.5 % (1.7-12.7); Neutrophils # 2.4 10*3/uL (1.4-7.4); Neutrophils % 34.5 % (38.7-73.9); Platelet Count 81 T/CUMM (130-400); Red Blood Count 3.35 MC/CUMM (3.8-5.5); Red Cell Distribution Width 20.2 % (9.3-17.3); White Blood Count 7.1 T/CUMM (4-12)
[2018-09-14 05:14] LABS: Albumin 1.2 G/DL (3.4-5.0); Bilirubin,Direct 3.64 MG/DL (0.0-0.20); Bilirubin,Indirect 1.7 MG/DL (0.0-1.0); Bilirubin,Total 5.3 MG/DL (0.2-1.0); Total Protein 6.8 G/DL (6.4-8.3)
[2018-09-14 05:20] LABS: Albumin 1.2 G/DL (3.4-5.0); Bilirubin,Total 5.3 MG/DL (0.2-1.0); Calcium 8.9 MG/DL (8.5-10.1); Osmolality,Calculated 277.8 MOS/KG (273-304); Total Protein 6.8 G/DL (6.4-8.3)
[2018-09-14] MEDS: POTASSIUM CHLORIDE RIDER 10 MEQ in PREMIX 1 EACH IV PRN ×5 (06:05→10:20)
[2018-09-14] MEDS: LEVOTHYROXINE 50 MCG TABLET PO SCH (06:05)
[2018-09-14] MEDS: LACTULOSE 20 GM/30 ML UDCUP PO SCH ×3 (06:05→18:24)
[2018-09-14 06:45] LABS: Band Neutrophils 2 % (0-10); Eosinophils 1 % (0-10); Lymphocytes 41 % (20-55); Segmented Neutrophils 50 % (50-85); Total Cells Counted 100
[2018-09-14 06:46] LABS: Anisocytosis 1+; Hypochromasia 1+; Platelet Estimate Decreased; Target Cells 1+; Tear Drop Cells Few
[2018-09-14] MEDS: ZINC OXIDE PASTE 113 GM TUBE TOP SCH (08:11)
[2018-09-14] MEDS: NYSTATIN POWDER 15 GM BOTTLE TOP SCH (08:11)
[2018-09-14] MEDS: PANTOPRAZOLE 40 MG TABLET PO SCH (08:11)
[2018-09-14] MEDS: CALCIUM CARBONATE CHEW 500 MG TABLET PO SCH ×2 (08:11→22:34)
[2018-09-14] MEDS: POTASSIUM CHLORIDE 20 MEQ TABLET PO PRN ×2 (18:28→22:34)
[2018-09-15] MEDS: LACTULOSE 20 GM/30 ML UDCUP PO SCH ×4 (00:34→17:20)
[2018-09-15] MEDS: POTASSIUM CHLORIDE 20 MEQ TABLET PO PRN (00:35)
[2018-09-15] MEDS: ZINC OXIDE PASTE 113 GM TUBE TOP SCH ×3 (00:36→20:54)
[2018-09-15] MEDS: NYSTATIN POWDER 15 GM BOTTLE TOP SCH ×3 (00:36→20:54)
[2018-09-15 05:01] LABS: Basophils # 0.1 10*3/uL (0.0-0.2); Basophils % 0.7 % (0.0-0.8); Eosinophils # 0.3 10*3/uL (0.0-0.87); Eosinophils % 3.7 % (0.00-10.9); Hematocrit 35.2 VOL% (35.7-47.0); Hemoglobin 11.9 GM/DL (12.0-16.0); Immature Granulocytes % 0.3 %; Immature Granulocytes Absolute 0.02 #; Lymphocytes # 3.2 10*3/uL (1.4-4.0); Lymphocytes % 44.9 % (21.3-54.2); Mean Corpuscular HGB Conc 33.8 GM/DL (32-36); Mean Corpuscular Hemoglobin 33 PG (27-34); Mean Corpuscular Volume 98.6 FL (87-102); Mean Platelet Volume 12.7 FL (9.6-12.0); Monocytes # 0.8 10*3/uL (0.11-0.8); Neutrophils # 2.8 10*3/uL (1.4-7.4); Neutrophils % 39.4 % (38.7-73.9); Red Blood Count 3.57 MC/CUMM (3.8-5.5); Red Cell Distribution Width 19.7 % (9.3-17.3); White Blood Count 7.2 T/CUMM (4-12)
[2018-09-15 05:13] LABS: Platelet Count 77 T/CUMM (130-400)
[2018-09-15 05:25] LABS: Osmolality,Calculated 276.7 MOS/KG (273-304); Potassium 3.8 MMOL/L (3.5-5.1)
[2018-09-15 05:29] LABS: Hypochromasia 1+; Macrocytosis 1+
[2018-09-15 05:30] LABS: Platelet Estimate Decreased; Target Cells Slight
[2018-09-15] MEDS: LEVOTHYROXINE 50 MCG TABLET PO SCH (06:15)
[2018-09-15] MEDS: PANTOPRAZOLE 40 MG TABLET PO SCH (09:42)
[2018-09-15] MEDS: CALCIUM CARBONATE CHEW 500 MG TABLET PO SCH ×2 (09:44→20:53)
[2018-09-15 17:27] LABS: % Iron Saturation 87.5 % (18-50)
[2018-09-15 23:22] LABS: Hepatitis A Ab IgM Result Negative (Negative); Hepatitis B Core IgM Quant 0.09 Index; Hepatitis B Core IgM Result Negative (Negative); Hepatitis B Surface Ag Quant < 0.10 Index; Hepatitis B Surface Ag Result Negative (Negative); Hepatitis C Virus Ab Result Negative (Negative)
[2018-09-16] MEDS: LACTULOSE 20 GM/30 ML UDCUP PO SCH ×4 (01:16→19:36)
[2018-09-16] MEDS: LEVOTHYROXINE 50 MCG TABLET PO SCH (06:49)
[2018-09-16] MEDS: CALCIUM CARBONATE CHEW 500 MG TABLET PO SCH ×2 (11:32→20:47)
[2018-09-16] MEDS: PANTOPRAZOLE 40 MG TABLET PO SCH (11:32)
[2018-09-16 11:55] LABS: Basophils # 0.1 10*3/uL (0.0-0.2); Basophils % 0.7 % (0.0-0.8); Eosinophils # 0.4 10*3/uL (0.0-0.87); Eosinophils % 4.7 % (0.00-10.9); Hemoglobin 11.7 GM/DL (12.0-16.0); Immature Granulocytes % 0.3 %; Immature Granulocytes Absolute 0.02 #; Lymphocytes # 3.3 10*3/uL (1.4-4.0); Lymphocytes % 44.7 % (21.3-54.2); Mean Corpuscular HGB Conc 33.4 GM/DL (32-36); Mean Corpuscular Hemoglobin 34 PG (27-34); Mean Corpuscular Volume 100.9 FL (87-102); Mean Platelet Volume 13.5 FL (9.6-12.0); Monocytes # 0.7 10*3/uL (0.11-0.8); Monocytes % 9.6 % (1.7-12.7); Platelet Count 80 T/CUMM (130-400); Red Blood Count 3.47 MC/CUMM (3.8-5.5); Red Cell Distribution Width 20.2 % (9.3-17.3); White Blood Count 7.4 T/CUMM (4-12)
[2018-09-16 12:26] LABS: Calcium 8.9 MG/DL (8.5-10.1); Osmolality,Calculated 280.7 MOS/KG (273-304)
[2018-09-16] MEDS: NYSTATIN POWDER 15 GM BOTTLE TOP SCH ×2 (13:22→20:47)
[2018-09-16] MEDS: ZINC OXIDE PASTE 113 GM TUBE TOP SCH ×2 (13:22→20:47)
[2018-09-17] MEDS: LACTULOSE 20 GM/30 ML UDCUP PO SCH ×5 (00:45→23:16)
[2018-09-17 05:15] LABS: Basophils # 0.1 10*3/uL (0.0-0.2); Basophils % 0.6 % (0.0-0.8); Eosinophils # 0.3 10*3/uL (0.0-0.87); Eosinophils % 4.1 % (0.00-10.9); Hematocrit 34.9 VOL% (35.7-47.0); Hemoglobin 11.6 GM/DL (12.0-16.0); Immature Granulocytes % 0.3 %; Immature Granulocytes Absolute 0.02 #; Lymphocytes # 3.6 10*3/uL (1.4-4.0); Lymphocytes % 45.5 % (21.3-54.2); Mean Corpuscular HGB Conc 33.2 GM/DL (32-36); Mean Corpuscular Hemoglobin 34 PG (27-34); Mean Corpuscular Volume 101.5 FL (87-102); Monocytes # 0.8 10*3/uL (0.11-0.8); Neutrophils # 3.1 10*3/uL (1.4-7.4); Neutrophils % 39.5 % (38.7-73.9); Red Blood Count 3.44 MC/CUMM (3.8-5.5); Red Cell Distribution Width 20.3 % (9.3-17.3); White Blood Count 7.9 T/CUMM (4-12)
[2018-09-17 05:16] LABS: Platelet Count 67 T/CUMM (130-400)
[2018-09-17 05:41] LABS: Calcium 9.1 MG/DL (8.5-10.1); Hypochromasia 1+; Osmolality,Calculated 281.4 MOS/KG (273-304); Platelet Estimate Decreased; Potassium 4.1 MMOL/L (3.5-5.1); Target Cells Few
[2018-09-17 05:42] LABS: Macrocytosis Slight
[2018-09-17] MEDS: LEVOTHYROXINE 50 MCG TABLET PO SCH (07:00)
[2018-09-17] MEDS: CALCIUM CARBONATE CHEW 500 MG TABLET PO SCH ×2 (11:39→21:38)
[2018-09-17] MEDS: ZINC OXIDE PASTE 113 GM TUBE TOP SCH ×2 (14:20→21:38)
[2018-09-17] MEDS: NYSTATIN POWDER 15 GM BOTTLE TOP SCH ×2 (14:20→21:38)
[2018-09-17] MEDS: PANTOPRAZOLE 40 MG TABLET PO SCH (18:02)
[2018-09-18 04:57] LABS: Basophils # 0.1 10*3/uL (0.0-0.2); Basophils % 0.8 % (0.0-0.8); Eosinophils # 0.3 10*3/uL (0.0-0.87); Eosinophils % 3.7 % (0.00-10.9); Hematocrit 34.7 VOL% (35.7-47.0); Hemoglobin 11.3 GM/DL (12.0-16.0); Immature Granulocytes % 0.3 %; Immature Granulocytes Absolute 0.03 #; Lymphocytes # 4.4 10*3/uL (1.4-4.0); Mean Corpuscular HGB Conc 32.6 GM/DL (32-36); Mean Corpuscular Hemoglobin 33 PG (27-34); Mean Corpuscular Volume 101.5 FL (87-102); Mean Platelet Volume 13.2 FL (9.6-12.0); Monocytes # 0.8 10*3/uL (0.11-0.8); Monocytes % 9.3 % (1.7-12.7); Neutrophils # 3.2 10*3/uL (1.4-7.4); Neutrophils % 35.9 % (38.7-73.9); Platelet Count 82 T/CUMM (130-400); Red Blood Count 3.42 MC/CUMM (3.8-5.5); Red Cell Distribution Width 20.4 % (9.3-17.3); White Blood Count 8.9 T/CUMM (4-12)
[2018-09-18 05:14] LABS: Calcium 9.4 MG/DL (8.5-10.1); Osmolality,Calculated 280.4 MOS/KG (273-304); Potassium 4.4 MMOL/L (3.5-5.1)
[2018-09-18 05:26] LABS: Eosinophils 7 % (0-10); Hypochromasia 1+; Lymphocytes 38 % (20-55); Platelet Estimate Decreased; Segmented Neutrophils 47 % (50-85); Total Cells Counted 100
[2018-09-18 05:27] LABS: Macrocytosis Slight
[2018-09-18] MEDS: LACTULOSE 20 GM/30 ML UDCUP PO SCH ×4 (05:43→23:54)
[2018-09-18] MEDS: LEVOTHYROXINE 50 MCG TABLET PO SCH (06:09)
[2018-09-18] MEDS: PANTOPRAZOLE 40 MG TABLET PO SCH (09:03)
[2018-09-18] MEDS: NYSTATIN POWDER 15 GM BOTTLE TOP SCH ×2 (09:03→21:23)
[2018-09-18] MEDS: ZINC OXIDE PASTE 113 GM TUBE TOP SCH ×2 (09:03→21:23)
[2018-09-18] MEDS: CALCIUM CARBONATE CHEW 500 MG TABLET PO SCH ×2 (09:03→21:23)
[2018-09-18] MEDS: RIFAXIMIN 550 MG TABLET PO SCH (21:23)
[2018-09-19] MEDS: LEVOTHYROXINE 50 MCG TABLET PO SCH (06:04)
[2018-09-19] MEDS: LACTULOSE 20 GM/30 ML UDCUP PO SCH ×3 (06:04→18:00)
[2018-09-19] MEDS: PANTOPRAZOLE 40 MG TABLET PO SCH (10:18)
[2018-09-19] MEDS: NYSTATIN POWDER 15 GM BOTTLE TOP SCH ×2 (10:18→21:42)
[2018-09-19] MEDS: RIFAXIMIN 550 MG TABLET PO SCH ×2 (10:18→21:42)
[2018-09-19] MEDS: ZINC OXIDE PASTE 113 GM TUBE TOP SCH ×2 (10:18→21:41)
[2018-09-19] MEDS: CALCIUM CARBONATE CHEW 500 MG TABLET PO SCH ×2 (10:23→21:42)
[2018-09-19] MEDS: VITAMIN E 400 UNIT CAPSULE PO SCH (21:42)
[2018-09-20] MEDS: LACTULOSE 20 GM/30 ML UDCUP PO SCH ×5 (01:36→23:11)
[2018-09-20] MEDS: LEVOTHYROXINE 50 MCG TABLET PO SCH (07:00)
[2018-09-20] MEDS: VITAMIN E 400 UNIT CAPSULE PO SCH ×2 (08:44→23:12)
[2018-09-20] MEDS: PANTOPRAZOLE 40 MG TABLET PO SCH (08:45)
[2018-09-20] MEDS: RIFAXIMIN 550 MG TABLET PO SCH ×2 (08:45→23:12)
[2018-09-20] MEDS: CALCIUM CARBONATE CHEW 500 MG TABLET PO SCH ×2 (08:47→23:11)
[2018-09-20] MEDS: ZINC OXIDE PASTE 113 GM TUBE TOP SCH ×2 (18:18→23:12)
[2018-09-20] MEDS: NYSTATIN POWDER 15 GM BOTTLE TOP SCH ×2 (18:18→23:12)
[2018-09-21 05:18] LABS: Folate 8.1 NG/ML (5.4-24.0)
[2018-09-21] MEDS: LEVOTHYROXINE 50 MCG TABLET PO SCH (06:39)
[2018-09-21] MEDS: LACTULOSE 20 GM/30 ML UDCUP PO SCH ×3 (06:39→18:49)
[2018-09-21] MEDS: RIFAXIMIN 550 MG TABLET PO SCH ×2 (11:10→21:19)
[2018-09-21] MEDS: CALCIUM CARBONATE CHEW 500 MG TABLET PO SCH ×2 (11:10→21:19)
[2018-09-21] MEDS: ZINC OXIDE PASTE 113 GM TUBE TOP SCH ×2 (11:10→21:19)
[2018-09-21] MEDS: NYSTATIN POWDER 15 GM BOTTLE TOP SCH ×2 (11:10→21:19)
[2018-09-21] MEDS: VITAMIN E 400 UNIT CAPSULE PO SCH ×2 (11:10→21:19)
[2018-09-21] MEDS: PANTOPRAZOLE 40 MG TABLET PO SCH (18:55)
[2018-09-22] MEDS: LACTULOSE 20 GM/30 ML UDCUP PO SCH ×4 (00:30→17:26)
[2018-09-22] MEDS: LEVOTHYROXINE 50 MCG TABLET PO SCH (06:53)
[2018-09-22] MEDS: NYSTATIN POWDER 15 GM BOTTLE TOP SCH ×2 (09:24→21:59)
[2018-09-22] MEDS: ZINC OXIDE PASTE 113 GM TUBE TOP SCH (09:24)
[2018-09-22] MEDS: CALCIUM CARBONATE CHEW 500 MG TABLET PO SCH ×2 (09:25→21:46)
[2018-09-22] MEDS: VITAMIN E 400 UNIT CAPSULE PO SCH ×2 (09:25→21:42)
[2018-09-22] MEDS: RIFAXIMIN 550 MG TABLET PO SCH ×2 (09:25→21:56)
[2018-09-22] MEDS: PANTOPRAZOLE 40 MG TABLET PO SCH (09:25)
[2018-09-23] MEDS: LACTULOSE 20 GM/30 ML UDCUP PO SCH ×3 (01:41→12:11)
[2018-09-23] MEDS: ZINC OXIDE PASTE 113 GM TUBE TOP SCH ×2 (01:41→09:55)
[2018-09-23] MEDS: LEVOTHYROXINE 50 MCG TABLET PO SCH (06:00)
[2018-09-23] MEDS: PANTOPRAZOLE 40 MG TABLET PO SCH (09:54)
[2018-09-23] MEDS: CALCIUM CARBONATE CHEW 500 MG TABLET PO SCH (09:55)
[2018-09-23] MEDS: RIFAXIMIN 550 MG TABLET PO SCH (09:55)
[2018-09-23] MEDS: VITAMIN E 400 UNIT CAPSULE PO SCH (09:55)
[2018-09-23] MEDS: NYSTATIN POWDER 15 GM BOTTLE TOP SCH (09:55)
[2018-09-23 12:18] VITALS: BP 112/58
== END 2018-09-23 15:33 | DRG 441 ==
LOC: N.ED 12:55 → SUATTDRO 14:46 → N.EDINP 14:46 → N.4E 15:53 → N.CC 09-12 00:41 → N.TELEN 09-14 16:47
PROVIDERS: ADMIT Internal Medicine; ATTEND Internal Medicine